=== PATIENT | male | born 1930 | race Caucasian/White ===

== ENCOUNTER 2018-05-08 18:49 | Emergency (ER) | payer OTHER ==
[~2018-05-08] VITALS: Ht 188 cm; Wt 65.6 kg
--- NOTE | 2018-05-08 18:49 | NUR ---
PT BIBA BLS TO BED 7
[2018-05-08 18:50] VITALS: BP 145/54
--- NOTE | 2018-05-08 18:58 | NUR ---
PATIENT PEPITO FROM [facility]. PER EMT PT HAD A WITNESS FALL TODAY; ABRASION NOTED ON RIGHT SIDE OF THE EYE.NO KO/LOC; DENIES NAUSEA,VOMITING OR DIZZINESS. HX OF DEMENTIA; AAOX2; PATIENT STATES PAIN OF 6/10 AT THIS TIME;PATIENT POSITIONED FOR COMFORT; HOB ELEVATED; BEDRAILS UP X2; BED DOWN. ER MD MADE AWARE OF PT STATUS.
--- NOTE | 2018-05-08 19:08 | NUR ---
REPORT GIVEN TO ABDIRAHMAN CELESTIN.
--- NOTE | 2018-05-08 19:08 | NUR ---
ASSUMED CARE OF PT FROM ABDIRAHMAN THIBODEAUX
[2018-05-08] MEDS ORDERED: ASPIRIN 325 MG TAB PO ONE (20:15)
[2018-05-08] MEDS ORDERED: DEXAMETHASONE 10 MG/ML VIAL IVP ONE (20:15)
[2018-05-08 20:46] LABS: BASOPHILS % (AUTO) 0.8 % (0.0-2.0); EOSINOPHILS # (AUTO) 0.1 K/uL (0-0.4); EOSINOPHILS % (AUTO) 1.9 % (0.0-4.0); HEMATOCRIT 37.4 % (36-52); HEMOGLOBIN 12.6 g/dL (12.0-18.0); LYMPHOCYTES # (AUTO) 0.7 K/uL (2.0-11.5); LYMPHOCYTES % (AUTO) 18.7 % (20.5-51.1); MEAN CORPUSCULAR HEMOGLOBIN 33 pg (27-31); MEAN CORPUSCULAR HGB CONC 34 g/dL (33-37); MONOCYTES # (AUTO) 0.5 K/uL (0.8-1.0); NEUTROPHILS # (AUTO) 2.6 K/uL (1.8-7.7); NEUTROPHILS % (AUTO) 66.6 % (42.2-75.2); PLATELET COUNT (AUTO) 110 K/uL (140-450); RED BLOOD CELL COUNT(AUTO) 3.82 MIL/uL (4.20-6.10); RED CELL DISTRIBUTION WIDTH 14.1 % (11.6-13.7); WHITE BLOOD COUNT (AUTO) 3.9 K/uL (4.8-10.8)
[2018-05-08 20:52] LABS: ANION GAP 7.9 (8-16); CARBON DIOXIDE 28.9 mmol/L (21-32); CHLORIDE 104 mmol/L (98-107); CREATININE 1.5 mg/dL (0.7-1.3); GLUCOSE 102 mg/dL (74-106); POTASSIUM 4.8 mmol/L (3.5-5.1); SODIUM SERUM 136 mmol/L (136-145); UREA NITROGEN, BLOOD 28 mg/dL (7-18)
[2018-05-08 20:58] LABS: ALBUMIN 2.8 g/dL (3.4-5.0); ASPARTATE AMINOTRANSFERASE 31 U/L (15-37); TOTAL BILIRUBIN 0.4 mg/dL (0.0-1.0)
[2018-05-08 21:07] LABS: PROTHROMBIN TIME 9.8 secs (10.8-13.4)
--- NOTE | 2018-05-08 21:19 | NUR ---
PT RESTING, VSS. WILL CONTINUE TO MONITOR.
--- NOTE | 2018-05-08 22:02 | NUR ---
Patient to be transferred to [facility]. Is being transferred due to HIGHER LEVEL OF CARE. Receiving facility has accepting physician and available space. ER physician has signed transfer form. Patient or responsible constitution party has agreed to transfer and signed form. Patient belongings inventoried and will be sent with patient. Copy of nursing notes, lab reports, EKG, Physicians Orders and X-rays to be sent with patient. Report called to BRUNA at receiving facility. [facility] ambulance service has been called for transfer. ETA is 60MIN.
--- NOTE | 2018-05-08 22:30 | NUR ---
[facility] ARRIVAL FOR PT TRANSFER.
[2018-05-08 22:40] VITALS: BP 145/60
== END 2018-05-08 22:40 | disposition short-term general hospital (02) ==
LOC: MED 18:49
DX: S00.81XA Abrasion of other part of head, initial encounter (principal); I10 Essential (primary) hypertension; F41.9 Anxiety disorder, unspecified; G93.9 Disorder of brain, unspecified; Z95.0 Presence of cardiac pacemaker; W07.XXXA Fall from chair, initial encounter; Y93.89 Activity, other specified; Y92.89 Other specified places as the place of occurrence of the external cause; Y99.8 Other external cause status
CPT/HCPCS: 36415; 70450; 70486; 71045; 80053; 85025; 85610; 85730; 96374; 99285; J1100; Q0092; 99284

== ENCOUNTER 2018-05-18 10:57 | Emergency (ER) | payer OTHER ==
[~2018-05-18] VITALS: Ht 182.9 cm; Wt 77.1 kg
[2018-05-18 10:59] VITALS: BP 124/66
--- NOTE | 2018-05-18 11:20 | NUR ---
PT TAKEN TO BED 1 BY EMS CREW
--- NOTE | 2018-05-18 11:56 | NUR ---
88/M brought in by ems from [facility]. unwitnessed fall in pt's room c/o occipital painX YESTERDAY. ---no hematoma no break in skin noted ---recurring falls clear speech, no facial asymmetry, moving all extremities equally hx---dementia, pacemaker, anxiety
[2018-05-18] MEDS ORDERED: HALOPERIDOL IM 5 MG/ML VIAL IM ONE (12:25)
[2018-05-18 13:06] LABS: BASOPHILS # (AUTO) 0.1 K/uL (0.00-0.22); BASOPHILS % (AUTO) 0.9 % (0.0-2.0); EOSINOPHILS # (AUTO) 0.1 K/uL (0-0.4); EOSINOPHILS % (AUTO) 1.7 % (0.0-4.0); HEMATOCRIT 40.1 % (36-52); HEMOGLOBIN 13.2 g/dL (12.0-18.0); LYMPHOCYTES # (AUTO) 0.7 K/uL (2.0-11.5); LYMPHOCYTES % (AUTO) 12.1 % (20.5-51.1); MEAN CORPUSCULAR HEMOGLOBIN 33 pg (27-31); MEAN CORPUSCULAR HGB CONC 33 g/dL (33-37); MEAN CORPUSCULAR VOLUME 98.6 fL (80-94); MONOCYTES # (AUTO) 0.7 K/uL (0.8-1.0); MONOCYTES % (AUTO) 11.1 % (1.7-9.3); NEUTROPHILS # (AUTO) 4.5 K/uL (1.8-7.7); NEUTROPHILS % (AUTO) 74.2 % (42.2-75.2); PLATELET COUNT (AUTO) 150 K/uL (140-450); RED BLOOD CELL COUNT(AUTO) 4.06 MIL/uL (4.20-6.10); RED CELL DISTRIBUTION WIDTH 14.3 % (11.6-13.7); WHITE BLOOD COUNT (AUTO) 6.1 K/uL (4.8-10.8)
[2018-05-18 13:09] LABS: ANION GAP 9.4 (8-16); CARBON DIOXIDE 29.1 mmol/L (21-32); CHLORIDE 107 mmol/L (98-107); CREATININE 1.5 mg/dL (0.7-1.3); GLUCOSE 84 mg/dL (74-106); POTASSIUM 4.5 mmol/L (3.5-5.1); SODIUM SERUM 141 mmol/L (136-145); UREA NITROGEN, BLOOD 28 mg/dL (7-18)
[2018-05-18 13:15] LABS: ASPARTATE AMINOTRANSFERASE 15 U/L (15-37); TOTAL BILIRUBIN 0.4 mg/dL (0.0-1.0)
[2018-05-18 13:16] LABS: PROTHROMBIN TIME 9.8 secs (10.8-13.4)
--- NOTE | 2018-05-18 13:30 | NUR ---
PATIENT PERINEAL CARE PERFORMED, MOVED UP IN BED, PATIENT LAYING ON BED IN SUPINE POSITION WITH EYES OPEN ALERT AND ORIENTED TO PERSON AND PLACE.
[2018-05-18 14:05] LABS: APPEARANCE,URINE CLEAR (CLEAR); BILIRUBIN,URINE NEGATIVE (NEGATIVE); BLOOD, URINE NEGATIVE (NEGATIVE); COLOR,URINE YELLOW (YELLOW); LEUKOCYTE ESTERASE ,URINE NEGATIVE (NEGATIVE); NITRITE, URINE NEGATIVE (NEGATIVE); PH,URINE 6.5 (5.0-9.0); UGLUCOSE NEGATIVE (NEGATIVE)
--- NOTE | 2018-05-18 15:52 | NUR ---
CALLED RAUDEL TREVINO FOR DC. EMS WILL HAT BRIM CURLER PT AROUND 1830 PM.
--- NOTE | 2018-05-18 18:40 | NUR ---
Patient discharge back to [facility]. pupil personnel worker by EMS, discharge instructions given with all documentation. VSS. Instructed to followup with PMD
[2018-05-18 18:45] VITALS: BP 112/56
== END 2018-05-18 18:40 | disposition home or self-care (01) ==
LOC: MED 10:57
DX: F03.90 Unspecified dementia, unspecified severity, without behavioral disturbance, psychotic disturbance, mood disturbance, and anxiety (principal); N28.9 Disorder of kidney and ureter, unspecified; I10 Essential (primary) hypertension; F41.9 Anxiety disorder, unspecified; Z95.0 Presence of cardiac pacemaker; W19.XXXA Unspecified fall, initial encounter; Y93.89 Activity, other specified; Y92.89 Other specified places as the place of occurrence of the external cause; Y99.8 Other external cause status
CPT/HCPCS: 36415; 51701; 70450; 71045; 72125; 80053; 81003; 84484; 85025; 85610; 85730; 93005; 96372; 99284; J1630; Q0092

== ENCOUNTER 2018-05-21 15:53 | Emergency (ER) | payer OTHER, MEDICAID ==
[~2018-05-21] VITALS: Ht 182.9 cm; Wt 65.8 kg
[2018-05-21 15:54] VITALS: BP 161/56
--- NOTE | 2018-05-21 15:54 | NUR ---
PT BIBA BLS TO ER BED 10
--- NOTE | 2018-05-21 15:55 | NUR ---
PT BIB BLS CREW FROM [facility] DUE TO R SIDED HEAD PAIN S/P FALL EARLIER TODAY. PER BLS CREW " NO N/V/D " BRUISING NOTED TO BODY TO R SIDE OF EYE VARIOUS STAGES OF HEALING NOTED. PT AAO X 1 TO SELF. PER FACILITY " UNWITNESSED FALL FOUND HIM ON THE FLOOR TODAY LEANING HIS HEAD ON THE RIGHT SIDE DIDNT COMPLAIN OF PAIN AND THEN HE SAID HIS HEAD HURT". BRUISING NOTED TO R EYE SOCKET, R DELTOID AND BILAT ARMS. VARIOUS STAGES OF HEALING. PT. STATES " I DONT WANT TO BE HERE". 08/27 ACUTE PAIN THAT IS NO RADIATING PER PATIENT POINTED TO R SIDE OF HEAD. PERRLA 3MM BRISK. ER MD MADE AWARE. SAFETY PRECAUTIONS IMPLEMENTED. WILL CONTINUE TO MONITOR. SAFETY PRECAUTIONS IMPLEMENTED. HOB ELEVATED. MED HX: DEMENTIA, ALZHEIMERS, AKD, PACEMAKER, HTN, ANXIETY ALLERGIES : NKDA
[2018-05-21] MEDS ORDERED: HALOPERIDOL IM 5 MG/ML VIAL IM ONE (16:20)
--- NOTE | 2018-05-21 16:20 | NUR ---
PT. IS IRRITATED AT THIS TIME, YELLING " LET ME OUT OF HERE I DO NOT WANT TO BE HERE". ER MD CUENCA MADE AWARE.
--- NOTE | 2018-05-21 17:29 | NUR ---
PT. RESTING COMFORTABLY IN BED, HOB ELEVATED. VSS. RR EVEN AND UNLABORED. WILL CONTINUE TO MONITOR.
--- NOTE | 2018-05-21 17:40 | NUR ---
PT. REFUSED CT SCAN SCREAMED TO NEW CAR INSPECTOR " GET OUT OF HERE ".ER MD CUENCA MADE AWARE
--- NOTE | 2018-05-21 17:56 | NUR ---
[facility] CONTACTED FOR TRANSPORT BACK TO FACILITY ETA 2230 PER COMPANY.
--- NOTE | 2018-05-21 18:14 | NUR ---
pt. provided with juice, tolerated well. rr even and unlabored. r elbow dressing removed my patient skin tear noted, l forearm dressing removed as well skin tear noted.
--- NOTE | 2018-05-21 19:07 | NUR ---
Pt report given to ABDIRAHMAN CELESTIN . Transfer of care at this time.
--- NOTE | 2018-05-21 19:08 | NUR ---
ASSUMED CARE OF PT FROM ABDIRAHMAN ECHAVARRIA
--- NOTE | 2018-05-21 20:50 | NUR ---
PT SLEEPING AT THIS TIME. WILL CONTINUE TO MONITOR.
--- NOTE | 2018-05-21 21:53 | NUR ---
PT ATTEMPTING TO CLIMB OUT OF BED, PT IS ABLE TO BE REDIRECTED TO LAY IN BED WITHOUT COMPLICATIONS. WILL CONTINUE TO MONITOR.
--- NOTE | 2018-05-21 23:00 | NUR ---
PT BRIEF CHANGED AND CLEANED. PROVIDED HOSPITAL PANTS. PT IN BED AT THIS TIME. WILL CONTNIUE TO MONITOR.
--- NOTE | 2018-05-21 23:27 | NUR ---
PROVIDED PT WITH SANDWICH, ASSISTANCE WITH FEEDING PROVIDED.
--- NOTE | 2018-05-22 00:28 | NUR ---
Patient appears to be resting in bed. Vital Signs within normal limits. Respirations even and unlabored.
--- NOTE | 2018-05-22 01:01 | NUR ---
BRIEF CHANGED, PT REPOSITIONED FOR COMFORT. WILL CONTINUE TO MONITOR.
--- NOTE | 2018-05-22 01:38 | NUR ---
[facility] CALLED FOR UPDATED ETA TIME -- FAWAD FROM [facility] ADVISED CREW ON THE WAY WITH 15 MINUTE ETA.
[2018-05-22 01:57] VITALS: BP 140/61
--- NOTE | 2018-05-22 01:58 | NUR ---
Patient discharged with v/s stable. Written and verbal after care instructions given and explained. Patient verbalized understanding. Ambulance Transport with to skilled nursing. All questions addressed prior to discharge. Advised to follow up with PMD.
== END 2018-05-22 02:00 | disposition home or self-care (01) ==
LOC: MED 15:53
DX: S51.011A Laceration without foreign body of right elbow, initial encounter (principal); R51 Headache; F03.90 Unspecified dementia, unspecified severity, without behavioral disturbance, psychotic disturbance, mood disturbance, and anxiety; I10 Essential (primary) hypertension; Z95.0 Presence of cardiac pacemaker; W01.0XXA Fall on same level from slipping, tripping and stumbling without subsequent striking against object, initial encounter; Y93.89 Activity, other specified; Y92.128 Other place in nursing home as the place of occurrence of the external cause; Y99.8 Other external cause status
CPT/HCPCS: 96372; 99283; J1630

== ENCOUNTER 2018-05-24 04:00 | Emergency (ER) | payer OTHER, MEDICAID ==
[~2018-05-24] VITALS: Ht 177.8 cm; Wt 72.6 kg
[2018-05-24 04:00] VITALS: BP 156/61
--- NOTE | 2018-05-24 04:00 | NUR ---
[facility] EMS. Pt transfered to bed 5 from [facility].
[2018-05-24] MEDS ORDERED: LORazepam 2 MG/ML VIAL IM ONE (04:10)
--- NOTE | 2018-05-24 04:10 | NUR ---
Patient noted to have existing wounds upon arrival to ER. Photos taken of wound and placed in chart. Wound covered with dressing. Physician informed.
--- NOTE | 2018-05-24 04:10 | NUR ---
PT BIBA FOR FROM [facility] FOR FALL. DENTAL PATIENT COORDINATOR STATED THAT PT FELL 4 DAYS AGO RESULTING IN BRUISING AROUND PT R EYE, AND PT FELL 4 HOURS AGO AND STAFF FOUND HIM ON THE FLOOR. STAFF AT [facility] CALLED AMBULANCE BECAUSE OF PT CRYING OUT IN PAIN. PT HAS BRUISING ON R EYE, R HIP, L AND R ARMS, SKIN TEARS ON R ELBOW AND R HART, AND HANDS. PRESSURE ULCER ON PT SACRAL REGION. PT HAS DEMENTIA, PERRLA, FACIAL SYMMETRY INTACT, UNABLE TO ANSWER QUESTIONS, OVERESTEMATES ABILITY, UNABLE TO AMBULATE. PER DENTAL PATIENT COORDINATOR THAT IS PT'S BASELINE. ER MD TO SEE PT. SAFETY PRECAUTIONS IN PLACE, BED IN LOWEST POSITION, SIDE RAILS UP X2, HOB ELEVATED, FALL WRISTBAND PLACED ON PT, MOVED TO BED 5 TO BE IN CLEAR VIEW OF NURSES STATION, AND CURTAINS LEFT OPEN TO VISUALIZE PT. MEDHX: DEMENTIA, PSYCHOSIS, PACE MAKER, A-FIB
[2018-05-24] MEDS ORDERED: QUET25TA PO (04:14)
[2018-05-24] MEDS ORDERED: METO25TE2 PO (04:14)
[2018-05-24] MEDS ORDERED: DONE5TAB6 PO (04:15)
[2018-05-24] MEDS ORDERED: MORPHINE SULFATE 4 MG/ML SYR IM ONE (04:15)
[2018-05-24] MEDS ORDERED: MELA5TAB6 PO (04:16)
[2018-05-24] MEDS ORDERED: DIVA250T PO (04:16)
[2018-05-24] MEDS ORDERED: DOCU-299 PO (04:17)
[2018-05-24] MEDS ORDERED: AMIO200T5 PO (04:17)
[2018-05-24] MEDS ORDERED: BUS5 PO (04:18)
[2018-05-24] MEDS ORDERED: MAGN400S60 PO (04:18)
--- NOTE | 2018-05-24 04:21 | NUR ---
TO CT VIA MAR WITH PATRICK TREVINO, RN, AND EMT.
[2018-05-24 04:33] LABS: ANION GAP 8.7 (8-16); CARBON DIOXIDE 30.6 mmol/L (21-32); CHLORIDE 106 mmol/L (98-107); CREATININE 1.5 mg/dL (0.7-1.3); GLUCOSE 91 mg/dL (74-106); POTASSIUM 4.3 mmol/L (3.5-5.1); SODIUM SERUM 141 mmol/L (136-145); UREA NITROGEN, BLOOD 25 mg/dL (7-18)
[2018-05-24 04:38] LABS: ALBUMIN 2.8 g/dL (3.4-5.0); ASPARTATE AMINOTRANSFERASE 26 U/L (15-37); TOTAL BILIRUBIN 0.5 mg/dL (0.0-1.0)
--- NOTE | 2018-05-24 05:12 | NUR ---
EKG PERFORMED AT BEDSIDE. PT COVERED IN GOWN AND BLANKET DURING PROCEDURE. PT DID RESIST AND BECOME COMBATIVE IN BOUTS DURING PROCEDURE.
--- NOTE | 2018-05-24 05:15 | NUR ---
# 14 FR Urinary catheter inserted utilizing sterile technique. Immediate return of 30 ml CLEAR YELLOW urine noted. Urine sample collected and sent to lab. Pt tolerated procedure WELL.
[2018-05-24 05:25] LABS: BASOPHILS # (AUTO) 0.1 K/uL (0.00-0.22); BASOPHILS % (AUTO) 0.9 % (0.0-2.0); EOSINOPHILS # (AUTO) 0.1 K/uL (0-0.4); EOSINOPHILS % (AUTO) 1.2 % (0.0-4.0); HEMATOCRIT 39.5 % (36-52); HEMOGLOBIN 12.9 g/dL (12.0-18.0); LYMPHOCYTES # (AUTO) 0.7 K/uL (2.0-11.5); LYMPHOCYTES % (AUTO) 11.5 % (20.5-51.1); MEAN CORPUSCULAR HEMOGLOBIN 32 pg (27-31); MEAN CORPUSCULAR HGB CONC 33 g/dL (33-37); MEAN CORPUSCULAR VOLUME 97.9 fL (80-94); MONOCYTES # (AUTO) 0.8 K/uL (0.8-1.0); MONOCYTES % (AUTO) 13.1 % (1.7-9.3); NEUTROPHILS # (AUTO) 4.6 K/uL (1.8-7.7); NEUTROPHILS % (AUTO) 73.3 % (42.2-75.2); PLATELET COUNT (AUTO) 119 K/uL (140-450); RED BLOOD CELL COUNT(AUTO) 4.03 MIL/uL (4.20-6.10); RED CELL DISTRIBUTION WIDTH 14.3 % (11.6-13.7); WHITE BLOOD COUNT (AUTO) 6.3 K/uL (4.8-10.8)
[2018-05-24 05:59] LABS: APPEARANCE,URINE SL CLOUDY (CLEAR); BILIRUBIN,URINE NEGATIVE (NEGATIVE); BLOOD, URINE 3+ (NEGATIVE); COLOR,URINE YELLOW (YELLOW); LEUKOCYTE ESTERASE ,URINE 3+ (NEGATIVE); NITRITE, URINE POSITIVE (NEGATIVE); UGLUCOSE NEGATIVE (NEGATIVE)
[2018-05-24 06:10] LABS: WBC,URINE 20-60 /HPF (0-5)
[2018-05-24 06:11] LABS: RBC,URINE 11-20 (MOD) /HPF (0-5)
--- NOTE | 2018-05-24 06:14 | NUR ---
PT IS RESTING IN BED WITH EYES CLOSED. NO AGITATION OR RESLTESSNESS NOTED AT THIS TIME. VSS. WILL CONTINUE TO MONITOR.
[2018-05-24] MEDS ORDERED: cefTRIAXone 1,000 MG in LIDOCAINE MPF 1% - 5 mL VIAL 2.1 ML IM ONE (06:25)
--- NOTE | 2018-05-24 06:36 | NUR ---
SPOKE WITH JUAQUIN FROM [facility]. ADVISED THAT TRANSPORT WILL BE IN CONTACT WITH ED AT 0700 TO PROVIDE ETA FOR PICKUP. ER MD CHONG AWARE AND AGREES.
--- NOTE | 2018-05-24 07:06 | NUR ---
JUAQUIN FROM [facility] CALLED TO UPDATE ETA, TRANSPORTATION WILL ARRIVE BETWEEN [phone] AND [phone]
[2018-05-24 07:50] VITALS: BP 148/60
--- NOTE | 2018-05-24 08:00 | NUR ---
Patient discharged with v/s stable. Written and verbal after care instructions given and explained. Patient alert, oriented and verbalized understanding of instructions. Wheel Chair Assisted with by caregiver. All questions addressed prior to discharge. ID band removed. Patient advised to follow up with PMD. Rx of cipro given. Patient educated on indication of medication including possible reaction and side effects. Opportunity to ask questions provided and answered.
== END 2018-05-24 08:00 | disposition home or self-care (01) ==
LOC: MED 04:00
DX: S00.11XA Contusion of right eyelid and periocular area, initial encounter (principal); S70.01XA Contusion of right hip, initial encounter; S50.01XA Contusion of right elbow, initial encounter; N17.9 Acute kidney failure, unspecified; N39.0 Urinary tract infection, site not specified; F03.90 Unspecified dementia, unspecified severity, without behavioral disturbance, psychotic disturbance, mood disturbance, and anxiety; I10 Essential (primary) hypertension; Z79.899 Other long term (current) drug therapy; W19.XXXA Unspecified fall, initial encounter; Y93.89 Activity, other specified; Y92.89 Other specified places as the place of occurrence of the external cause; Y99.8 Other external cause status
CPT/HCPCS: 36415; 70450; 70486; 73080; 73502; 80053; 81001; 85025; 87086; 93005; 96372; 99284; C1758; J0696; J2001; J2060; J2270; 87186

== ENCOUNTER 2018-06-19 19:59 | Inpatient (IN) | payer OTHER, MEDICAID ==
[~2018-06-19] VITALS: Ht 170.2 cm; Wt 71.2 kg
[~2018-06-19 19:59] MED LIST: AMIO200T5 PO; BUS5 PO; DIVA250T PO; DOCU-299 PO; DONE5TAB6 PO; MAGN400S60 PO; MELA5TAB6 PO; METO25TE2 PO; QUET25TA PO
[2018-06-19 20:00] VITALS: BP 185/74
[2018-06-19] MEDS ORDERED: NACL 0.9% 500 ML IV SCH (20:09)
[2018-06-19 20:17] VITALS: BP 185/74
--- NOTE | 2018-06-19 20:17 | NUR ---
RT AT BEDSIDE, PT PUT ON BIPAP.
[2018-06-19 20:46] LABS: EOSINOPHILS # (AUTO) 0.4 K/uL (0-0.4); EOSINOPHILS % (AUTO) 5.1 % (0.0-4.0); HEMATOCRIT 49.9 % (36-52); HEMOGLOBIN 16.3 g/dL (12.0-18.0); LYMPHOCYTES # (AUTO) 1.3 K/uL (2.0-11.5); LYMPHOCYTES % (AUTO) 16.8 % (20.5-51.1); MEAN CORPUSCULAR HEMOGLOBIN 32 pg (27-31); MEAN CORPUSCULAR HGB CONC 33 g/dL (33-37); MEAN CORPUSCULAR VOLUME 99.4 fL (80-94); MONOCYTES # (AUTO) 1.5 K/uL (0.8-1.0); MONOCYTES % (AUTO) 19.6 % (1.7-9.3); NEUTROPHILS # (AUTO) 4.4 K/uL (1.8-7.7); NEUTROPHILS % (AUTO) 58.5 % (42.2-75.2); PLATELET COUNT (AUTO) 144 K/uL (140-450); RED BLOOD CELL COUNT(AUTO) 5.03 MIL/uL (4.20-6.10); RED CELL DISTRIBUTION WIDTH 14.9 % (11.6-13.7); WHITE BLOOD COUNT (AUTO) 7.5 K/uL (4.8-10.8)
--- NOTE | 2018-06-19 20:54 | NUR ---
XRAY AT BEDSIDE
--- NOTE | 2018-06-19 21:00 | NUR ---
# 16 FR Patterson catheter with 10ml utilizing sterile technique. Immediate return of 50 ml CLOUDY YELLOW urine noted. Bedside drainage bag placed below level of bladder. Urine sample collected and sent to lab. Pt tolerated procedure WELL.
[2018-06-19 21:04] LABS: ALBUMIN 3.6 g/dL (3.4-5.0); CHLORIDE 103 mmol/L (98-107); POTASSIUM 4.6 mmol/L (3.5-5.1); SODIUM SERUM 143 mmol/L (136-145)
[2018-06-19] MEDS ORDERED: PIPERACILLIN/TAZOBACTAM 3.375 GM in DEXTROSE 5% 50 ML IV ONE (21:05)
[2018-06-19 21:11] LABS: APPEARANCE,URINE TURBID (CLEAR); BILIRUBIN,URINE 1+ (NEGATIVE); BLOOD, URINE 3+ (NEGATIVE); COLOR,URINE YELLOW (YELLOW); LEUKOCYTE ESTERASE ,URINE 3+ (NEGATIVE); NITRITE, URINE NEGATIVE (NEGATIVE); UGLUCOSE NEGATIVE (NEGATIVE)
[2018-06-19 21:12] LABS: PROTHROMBIN TIME 9.9 secs (10.8-13.4)
[2018-06-19 21:14] LABS: RBC,URINE 20-50 /HPF (0-5); WBC,URINE TOO MANY TO COUNT /HPF (0-5)
[2018-06-19 21:21] LABS: ANION GAP 14.9 (8-16); ASPARTATE AMINOTRANSFERASE 19 U/L (15-37); CARBON DIOXIDE 29.7 mmol/L (21-32); CREATININE 2.4 mg/dL (0.7-1.3); GLUCOSE 214 mg/dL (74-106); TOTAL BILIRUBIN 0.6 mg/dL (0.0-1.0); UREA NITROGEN, BLOOD 42 mg/dL (7-18)
[2018-06-19] MEDS ORDERED: PIPERACILLIN/TAZOBACTAM 3.375 GM VIAL IV ONE (21:22)
[2018-06-19] MEDS ORDERED: LEVOFLOXACIN 500 MG/D5W PREMIX 100 ML IV ONE (21:25)
[2018-06-19] MEDS ORDERED: NACL 0.9% 2,500 ML IV ONE (21:25)
--- NOTE | 2018-06-19 22:00 | NUR ---
Patient noted to have existing wounds upon arrival to ER. Photos taken of wound and placed in chart. Wound covered with dressing. Physician informed.
[2018-06-19] MEDS ORDERED: MORPHINE SULFATE 2 MG/ML SYR IVP PRN (22:25)
[2018-06-19] MEDS ORDERED: HYDROcodone/APAP 5/325 MG 1 TAB TAB PO PRN (22:25)
[2018-06-19] MEDS ORDERED: ONDANSETRON 4 MG/2 ML VIAL IM/IVP PRN (22:25)
[2018-06-19] MEDS ORDERED: DOCUSATE SODIUM 100 MG GELCAP PO PRN (22:25)
[2018-06-19] MEDS ORDERED: ACETAMINOPHEN 325 MG TAB PO PRN (22:25)
[2018-06-19] MEDS ORDERED: ATOR20TA PO (22:50)
[2018-06-19] MEDS ORDERED: KEP500 PO (22:50)
[2018-06-19] MEDS ORDERED: DONE10TA10 PO (22:50)
[2018-06-19] MEDS ORDERED: ACETAMINOPHEN PO (22:50)
[2018-06-19] MEDS ORDERED: ASPI-1718 PO (22:50)
[2018-06-19 23:00] LABS: MAGNESIUM 2.6 mg/dL (1.8-2.4); PHOSPHORUS 5.6 mg/dL (2.5-4.9); THYROID STIMULATING HORMONE 1.31 uIU/mL (0.34-3.74)
[2018-06-19] MEDS ORDERED: NACL 0.9% 1,000 ML IV SCH (23:00)
--- NOTE | 2018-06-19 23:10 | NUR ---
Patient will be admitted to care of [facility]. Admited to ICU 5 VIA GURNEY WITH VSS Belongings list completed. CALLED ICU FOR REPORT PER HOUSE SUP
--- NOTE | 2018-06-19 23:30 | NUR ---
PATIENT TRANSFERRED FROM ER VIA GURNEY WITH 2 ASSISTANCE. PATIENT AWAKE, NON VERBAL, UNABLE TO MAKE NEEDS KNOWN. NO FEVER. PATIENT HAS PACEMAKER, SR ON THE MONITOR. SOB WITH HYPOXIA, ON BIPAP WITH IPAP 12, EPAP 5, RATE 14, FIO2 40%. PERIPHERAL LINE TO LEFT AC 20G, RUNNING NS 176ML/HR AND LEVAQUIN. KIM IN PLACE, DRAINING MILK COLOR LIKE URINE NOTED. PATIENT DX WITH UROSEPSIS. HX OF PARKINSON DISEASE WITH TREMORS NOTED. HOB ELEVATED, BED IN LOW POSITION. CALL LIGHT WITH IN REACH. WILL CONTINUE TO MONITOR.
[2018-06-19 23:35] VITALS: BP 131/99
--- NOTE | 2018-06-19 23:35 | NUR ---
PT TRANSFER TO ICU 5 FROM ER VIA SIMPLE MASK 6 L. PLACED PT ON BIPAP/.PT VITALS STABLE
[2018-06-20] VITALS (9 sets, daily range): BP systolic 95–153; BP diastolic 33–88
--- NOTE | 2018-06-20 | NUR ---
DR. ROYAL AT BEDSIDE TO EVAL THE PATIENT. WILL FOLLOW ORDERS.
[2018-06-20] MEDS ORDERED: ACETAMINOPHEN EXTRA STRENGTH 500 MG TAB PO PRN (00:45)
[2018-06-20] MEDS: DEXT 5% / NACL 0.45% 1,000 ML IV SCH ×2 (01:03→11:00)
[2018-06-20] MEDS ORDERED: LORazepam 2 MG/ML VIAL IM/IVP PRN (01:10)
[2018-06-20] MEDS ORDERED: ALBUTEROL SULFATE/IPRATROPIU 3 ML SOL IH PRN (01:15)
--- NOTE | 2018-06-20 02:00 | NUR ---
PATIENT IN ASLEEP AT THIS TIME. AROUSABLE TO VOICE. FLACC 0. TOLERATED WELL WITH BIPAP. O2 SAT 100% NOTED. SR ON THE MONITOR. WILL CONTINUE TO MONITOR.
[2018-06-20] MEDS ORDERED: PIPERACILLIN/TAZOBACTAM 2.25 GM VIAL IV ONE (05:22)
[2018-06-20] MEDS: PIPER/TAZO 2.25GM/D5W PREMIX 50 ML IV SCH ×4 (05:24→23:56)
--- NOTE | 2018-06-20 06:12 | NUR ---
rec'd pt on maggie v60 bipap setting 12/5 rr14 fio2 40% and alarms on and audible and ambu bag at side of bipap and bipap is plugged into red outlet, b\s are clear bilaterally pt agitated.
--- NOTE | 2018-06-20 06:34 | NUR ---
PATIENT HAS BEEN SCREENED AND CATEGORIZED HIGH NUTRITION RISK. PATIENT WILL BE SEEN WITHIN 1-2 DAYS OF ADMISSION. 06/20/18-06/21/18 ALEJO MATTA MS, RDN
[2018-06-20 06:55] LABS: HEMATOCRIT 43.9 % (36-52); HEMOGLOBIN 14.3 g/dL (12.0-18.0); MEAN CORPUSCULAR HEMOGLOBIN 32 pg (27-31); MEAN CORPUSCULAR HGB CONC 33 g/dL (33-37); MEAN CORPUSCULAR VOLUME 98.7 fL (80-94); PLATELET COUNT (AUTO) 109 K/uL (140-450); RED BLOOD CELL COUNT(AUTO) 4.44 MIL/uL (4.20-6.10); RED CELL DISTRIBUTION WIDTH 14.6 % (11.6-13.7); WHITE BLOOD COUNT (AUTO) 9.9 K/uL (4.8-10.8)
[2018-06-20] MEDS ORDERED: POLYVINYL ALCOHOL 1.4% OP 15 ML SOL OP PRN (06:55)
[2018-06-20 07:18] LABS: ANION GAP 12.4 (8-16); CARBON DIOXIDE 30.7 mmol/L (21-32); CHLORIDE 109 mmol/L (98-107); CREATININE 2.1 mg/dL (0.7-1.3); GLUCOSE 156 mg/dL (74-106); POTASSIUM 4.1 mmol/L (3.5-5.1); SODIUM SERUM 148 mmol/L (136-145); UREA NITROGEN, BLOOD 43 mg/dL (7-18)
[2018-06-20 07:37] LABS: MAGNESIUM 2.3 mg/dL (1.8-2.4); PHOSPHORUS 3.6 mg/dL (2.5-4.9)
[2018-06-20] MEDS: BLOOD GLUCOSE MONITORING 1 DEV DEV FS SCH ×4 (07:50→20:19)
[2018-06-20 07:57] LABS: BASOPHILS % (MANUAL) 0 % (0-2); EOSINOPHILS % (MANUAL) 0 % (0-4); LYMPHOCYTES % (MANUAL) 3 % (20-46); MONOCYTES % (MANUAL) 7 % (5-12)
[2018-06-20] MEDS ORDERED: CALCIUM ACETATE 667 MG TAB PO SCH (08:00)
--- NOTE | 2018-06-20 08:20 | NUR ---
PT RECEIVED FROM ICU NURSE. PT WAS TRANSFERRED TO BED VIA 4 NURSE TOTAL ASSIST. PT WAS PLACED ON BIPAP, DENTAL HYGIENE INSTRUCTOR, CONTINOUS PULSE OX. KIM DRAINING TO GRAVITY. URINE CLOUDY, CREAMY BROWN COLORED. IV LEFT AC 20G SITE WNL. INITIAL ASSESSMENT DONE. VITALS TAKEN. DR. CABAN WAS PRESENT WHILE TRANSFER. SCD PLACED. FALL AND CONTACT ISO IN PLACE. POC REVIEWED. ALL SAFETY MEASURES IN PLACE. WILL CONTINUE TO MONITOR.
[2018-06-20] MEDS: levETIRAcetam 500 MG TAB PO SCH ×2 (09:00→20:24)
[2018-06-20] MEDS: DIVALPROEX 500 MG TABEC PO SCH ×2 (09:00→20:23)
[2018-06-20] MEDS: AMIODARONE 200 MG TAB PO SCH ×2 (09:00→20:24)
[2018-06-20] MEDS: busPIRone 5 MG TAB PO SCH ×2 (09:00→20:22)
[2018-06-20] MEDS: DOCUSATE SODIUM 100 MG GELCAP PO SCH ×2 (09:00→20:24)
[2018-06-20] MEDS ORDERED: POLYVINYL ALCOHOL 1.4% OP 15 ML SOL BOTH EYES PRN (09:00)
[2018-06-20] MEDS: ASPIRIN 81 MG TAB.CHEW PO SCH (09:00)
--- NOTE | 2018-06-20 09:33 | NUR ---
ATTEMPTED BEDSIDE SWALLOW SCREENING. PT UNABLE TO TOLERATE LESS THAN 5ML WATER. COUGHING. ALL PO MEDS HELD. WILL NOTIFY .
--- NOTE | 2018-06-20 11:30 | NUR ---
CHANGED BIPAP EPAP TO 6 AND KEEP O2 SAT ABOVE 90% PER DR. REDD
[2018-06-20] MEDS ORDERED: MORPHINE SULFATE 2 MG/ML SYR IVP PRN (12:10)
[2018-06-20] MEDS: ALBUTEROL SULFATE/IPRATROPIU 3 ML SOL IH SCH (13:00)
--- NOTE | 2018-06-20 13:05 | NUR ---
PT'S SON AT BEDSIDE.
[2018-06-20] MEDS: LORazepam 2 MG/ML VIAL IM/IVP PRN (14:14)
--- NOTE | 2018-06-20 14:16 | NUR ---
PT TRYING TO TAKE OFF BIPAP MASK, TRYING TO PULL KIM CATH, TRYING TO GET OUT OF MITTENS, TRIES TO HIT STAFF WITH CARE, PT APPEARS AGITATED AND ANXIOUS, ATIVAN GIVEN PER PRN ORDER, PT REMAINS ON CONT. PULSE OX O2 SAT 100%, WITH BIPAP FIO2 50%. WILL CONTINUE TO MONTIOR.
[2018-06-20] MEDS ORDERED: Z-GUARD PASTE TP PRN (14:25)
--- NOTE | 2018-06-20 15:05 | NUR ---
FAB SCHUMACHER AT BEDSIDE, DR ROME SPOKE TO SON REGARDING OPTIONS, POLST FORM SIGNED BY SON.
--- NOTE | 2018-06-20 16:05 | NUR ---
NG TUBE INSERTED TO RIGHT NARE 14G, AFTER 2 ATTEMPTS, SUCCESSFUL, XRAY TAKEN FOR PLACEMENT CONFIRMATION.
--- NOTE | 2018-06-20 17:30 | NUR ---
NOTIFIED DR. BRADSHAW OF DECREASED BLOOD SUGAR. GLUCOSE LEVEL OF 74. WILL GIVE 1 AMP OF D50 PER DR. BRADSHAW
[2018-06-20] MEDS ORDERED: DEXTROSE 50% 50 ML SYR IVP ONE (17:45)
[2018-06-20] MEDS ORDERED: DEXTROSE 50% 50 ML SYR IVP SCH (18:00)
--- NOTE | 2018-06-20 19:31 | NUR ---
CHECKED BLOOD SUGAR. 97. GAVE REPORT TO MANAGER BRIDGE NURSE. PT RESTED COMFORTABLY ON BIPAP 50% FIO2. SPO2 100%.
--- NOTE | 2018-06-20 19:32 | NUR ---
RECEIVED REPORT FROM ABDIRAHMAN MOE FOR CONTINUITY OF CARE. PT NONVERBAL, ON BIPAP AT 50% 02. PT UNABLE TO MAKE NEEDS KNOWN, UNABLE TO FOLLOW COMMANDS. PT FALL RISK, BED ALARM ON. REDNESS TO SACRUM, BUT SKIN IS INTACT. PT HAS A 22G IV TO LEFT FOREARM, ASYMPTOMATIC AND INTACT. VITAL SIGNS WITHIN NORMAL LIMITS. PT STABLE, FLACC 0, NO SIGNS OF DISTRESS NOTED AT THIS TIME. PT POSITIONED FOR COMFORT. BED IN LOWEST POSITION, BED ALARM ON. WILL CONTINUE TO MONITOR.
[2018-06-20] MEDS: DONEPEZIL 10 MG TAB PO SCH (20:22)
[2018-06-20] MEDS: QUEtiapine FUMARATE 25 MG TAB PO SCH (20:23)
--- NOTE | 2018-06-20 20:27 | NUR ---
CRUSHED AND ADMINISTERED SCHEDULED MEDICATIONS THROUGH NGT. FLUSHED WITH WATER AFTER EACH MEDICATION AND ADMINISTERED HEPARIN SQ IN ABDOMEN. PT TOLERATED WELL.
--- NOTE | 2018-06-20 22:12 | NUR ---
MOVED PT FROM ROOM 125-A TO ROOM 122-A. PT STABLE, NO SIGNS OF DISTRESS NOTED AT THIS TIME. PT POSITIONED FOR COMFORT. BED IN LOWEST POSITION, BED ALARM ON. WILL CONTINUE TO MONITOR.
[2018-06-21] VITALS (7 sets, daily range): BP systolic 113–177; BP diastolic 50–80
--- NOTE | 2018-06-21 | NUR ---
VITAL SIGNS WITHIN NORMAL LIMITS. PT STABLE, DENIES PAIN AT THIS TIME, NO SIGNS OF DISTRESS NOTED AT THIS TIME. PT POSITIONED FOR COMFORT. BED IN LOWEST POSITION, BED ALARM ON. WILL CONTINUE TO MONITOR.
[2018-06-21] MEDS: Z-GUARD PASTE TP SCH ×2 (00:10→13:15)
--- NOTE | 2018-06-21 02:34 | NUR ---
NO SIGNS OF DISTRESS NOTED AT THIS TIME. PT POSITIONED FOR COMFORT. BED IN LOWEST POSITION, BED ALARM ON. WILL CONTINUE TO MONITOR.
[2018-06-21] MEDS: PIPER/TAZO 2.25GM/D5W PREMIX 50 ML IV SCH ×3 (05:12→18:51)
[2018-06-21] MEDS: LORazepam 2 MG/ML VIAL IM/IVP PRN (05:14)
--- NOTE | 2018-06-21 05:15 | NUR ---
ADMINISTERED ATIVAN BECAUSE PT WAS AGITATED AND TRYING TO PULL ON TUBES. PT TOLERATED WELL. WILL CONTINUE TO MONITOR.
[2018-06-21] MEDS: DEXT 5% / NACL 0.45% 1,000 ML IV SCH ×2 (05:54→10:47)
[2018-06-21] MEDS: BLOOD GLUCOSE MONITORING 1 DEV DEV FS SCH ×4 (05:54→21:33)
--- NOTE | 2018-06-21 06:20 | NUR ---
REC'D PT ON DOMINGUEZ V60 BIPAP SETTINGS / RR 14 FIO2 50% ALARMS ON AND AUDIBLE AND AMBU BAG AT SIDE OF BIPAP AND BIPAP IS PLUGGED INTO RED OUTLET, B\S ARE DIMINISHED BILATERALLY PT WEARING MED FACE MASK AND SKIN INTEGRITY IS INTACT PT SLEEPING WITH NO SIGNS OF DISTRESS NOTED AT THIS TIME Addendum: 06/21/18 at 0815 by Eileen Valdez RT pt on 40%fio2
[2018-06-21 06:29] LABS: BASOPHILS % (AUTO) 0.6 % (0.0-2.0); CARBON DIOXIDE 28.5 mmol/L (21-32); CHLORIDE 111 mmol/L (98-107); CREATININE 1.5 mg/dL (0.7-1.3); EOSINOPHILS # (AUTO) 0.1 K/uL (0-0.4); GLUCOSE 107 mg/dL (74-106); HEMATOCRIT 32.5 % (36-52); HEMOGLOBIN 10.8 g/dL (12.0-18.0); LYMPHOCYTES # (AUTO) 0.8 K/uL (2.0-11.5); LYMPHOCYTES % (AUTO) 17.8 % (20.5-51.1); MEAN CORPUSCULAR HEMOGLOBIN 32 pg (27-31); MEAN CORPUSCULAR HGB CONC 33 g/dL (33-37); MEAN CORPUSCULAR VOLUME 96.9 fL (80-94); MONOCYTES # (AUTO) 0.3 K/uL (0.8-1.0); NEUTROPHILS # (AUTO) 3.1 K/uL (1.8-7.7); NEUTROPHILS % (AUTO) 72.6 % (42.2-75.2); PLATELET COUNT (AUTO) 108 K/uL (140-450); POTASSIUM 3.5 mmol/L (3.5-5.1); RED BLOOD CELL COUNT(AUTO) 3.36 MIL/uL (4.20-6.10); RED CELL DISTRIBUTION WIDTH 14.3 % (11.6-13.7); SODIUM SERUM 147 mmol/L (136-145); UREA NITROGEN, BLOOD 33 mg/dL (7-18); WHITE BLOOD COUNT (AUTO) 4.3 K/uL (4.8-10.8)
[2018-06-21 06:42] LABS: MAGNESIUM 2.1 mg/dL (1.8-2.4); PHOSPHORUS 2.6 mg/dL (2.5-4.9)
[2018-06-21] MEDS: ALBUTEROL SULFATE/IPRATROPIU 3 ML SOL IH SCH ×3 (07:00→19:00)
--- NOTE | 2018-06-21 07:30 | NUR ---
RECEIVED PT ON BIPAP WITH 50% FIO2. PT CONFUSED, TRYING TO PULL OUT BIPAP, IV AND NGT. WITH MITTENS ON BILATERAL HANDS. AND NO SOB NOTED, NO SIGNS OF PAIN AT THIS TIME. IV TO LT AC PATENT AND INTACT. CHEST, DIMINISHED AIR ENTRY TO THE BASES. ABDOMEN SOFT, BOWEL SOUNDS PRESENT WITH WITH NG TO RT NARES, PROPER PLACEMENT CHECKED AND AUSCULTATED, NO RESIDUAL NOTED. WITH KIM DRAINING DARK LAVERN URINE IN MODERATE AMOUNTS. WILL REPOSITION PT Q2 HRS. CALL LIGHT WITHIN REACH, BED ALARM ON, BED ON LOWEST POSITION WITH 3 SIDE RAILS RAISED UP. WILL CONTINUE TO MONITOR PT.
--- NOTE | 2018-06-21 07:38 | NUR ---
ENDORSED PT TO DAY SHIFT RN LUIS ARMANDO FOR CONTINUITY OF CARE. PT IN STABLE CONDITION.
--- NOTE | 2018-06-21 10:02 | NUR ---
INCREASED FIO2 TO 50% FOR LOW O2 SAT OF 86% RN LUIS ARMANDO NOTIFIED
[2018-06-21] MEDS: DIVALPROEX 500 MG TABEC PO SCH ×2 (10:45→21:36)
[2018-06-21] MEDS: DOCUSATE SODIUM 100 MG GELCAP PO SCH ×2 (10:45→21:37)
[2018-06-21] MEDS: ASPIRIN 81 MG TAB.CHEW PO SCH (10:45)
[2018-06-21] MEDS: AMIODARONE 200 MG TAB PO SCH ×2 (10:46→21:37)
[2018-06-21] MEDS: levETIRAcetam 500 MG TAB PO SCH ×2 (10:46→21:36)
[2018-06-21] MEDS: busPIRone 5 MG TAB PO SCH ×2 (10:46→21:37)
--- NOTE | 2018-06-21 16:17 | NUR ---
06/21/18 RD INITIAL ASSESSMENT COMPLETED PLEASE REFER TO NUTRITION ASSESSMENT UNDER CARE ACTIVITY FOR ESTIMATED NUTRITIONAL NEEDS. 1. RECOMMEND VITAL 1.2 AT 75 ML/HR AND 180 ML WATER FLUSH Q6H DUE TO SEPSIS AND WOUND HEALING -THIS WILL PROVIDE A VOLUME OF 1800 ML, 2160 KCAL ENERGY, 135 GRAMS OF PROTEIN, AND 2180 ML FLUID. IT MEETS 100% OF ENERGY AND PROTEIN NEEDS. 2. RD TO FOLLOW-UP 2-3 DAYS, HIGH RISK JAMES LUCIO RD
--- NOTE | 2018-06-21 17:44 | NUR ---
BIPAP MASK REMOVED BRIEFLY FOR SWALLOW EVALUATION PER DR LOZANO PT FAILED RETURNED IMMEDIATELY TO BIPAP
--- NOTE | 2018-06-21 18:00 | NUR ---
NGT TUBE FEEDING CHANGED TO VITAL AF ORDERED.
--- NOTE | 2018-06-21 18:34 | NUR ---
* ST NOTE * Pt seen at bedside w/Nsg Rosalinda, Dr. Radford & RT present. Pt alert but lethargic at this time, requiring maximal verbal, tactile & visual cues to remain engaged throughout session. Bedside dysphagia and oral mechanism exams completed. See evaluation report for further details. RT removing BiPap at this time, and clinician administering 1 1-3 CC bolus of honey-thickened apple juice via a spoon. Pt accepting 1 CC via spoon, but appearing to hold bolus in oral cavity, demonstrating moderately impaired AP bolus transit at this time. Pt's 02 saturation also decreasing down to the 40s-50s at this time w/BiPap off & mask on. Clinician thus clearing pt's oral cavity of administered bolus to ensure safety and decreased risk of choking or aspiration, and RT re-applying BiPap at this time 2/2 to pt's severely diminished 02 saturation. Once BiPap mask replaced securely, pt's 02 saturation rates increasing gradually to 60s at this time. Pt, Dr. Radford and RT education completed re: pt unable to safely tolerate PO intake at this time 2/2 to severely diminished respiratory status, w/pt indifferent but Dr. Radford & RT agreeable. It is thus recommended pt remain NPO and to continue artificial means of nutrition via NGT or other enteral feeding method as specified by pt's POLST, family preferences, etc. Lastly it is recommended caregivers/nsg complete frequent oral hygiene program in AM & PM respectively. No further ST follow up recommended at this time. Pt, MD, & RT education completed re: results of evaluation; benefits of abiding by recommendation for pt to remain NPO w/alternative means of nutrition via NGT or other enteral feeding; and prognosis for improvement; with pt indifferent but caregivers/MD & RT verbalizing understanding and agreement w/clinician's recommendations. Recommend: - CONTINUE NPO - CONTINUE ARTIFICIAL MEANS OF NUTRITION VIA NGT OR CONSIDER PEG TUBE PLACEMENT barring pt's family's wishes/POLST - Complete oral hygiene care frequently, at least 2x/day in AM & PM No further ST follow up recommended at this time. NOMS Level 6 Time In/Out 17:45 - 18:15
--- NOTE | 2018-06-21 19:15 | NUR ---
PT RESTING. NO SOB NOTED. NO SIGNS OF PAIN. WILL ENDORSE TO NEXT SHIFT NURSE FOR CONTINUITY OF CARE.
--- NOTE | 2018-06-21 19:16 | NUR ---
RECEIVED BEDSIDE REPORT FROM DAY SHIFT NURSE LUIS ARMANDO RN, PT STABLE, NO DISTRESS NOTED, IV TO R FOOT 22G PATENT, INTACT, PT ON BIPAP 100% FIO2, NO SOB NOTED, KIM CATH IN PLACE DRAINING DARK LAVERN COLORED URINE, PT ON NG TUBE FEEDING, POSITIVE PLACEMENT CHECKED WITH SWOOSH TECHNIQUE, INITIAL ASSESSMENT DONE, ALL SAFETY PRECAUTION MET, CALL LIGHT WITHIN REACH, WILL CONTINUE TO MONITOR.
[2018-06-21] MEDS: QUEtiapine FUMARATE 25 MG TAB PO SCH (21:36)
[2018-06-21] MEDS: DONEPEZIL 10 MG TAB PO SCH (21:37)
--- NOTE | 2018-06-21 21:39 | NUR ---
DUE MEDICATION ADMINISTERED, PT TOLERATED WELL, PT PLATELET 108, DR. LAYTON STATED OK TO GIVE HEPARIN, PT RESTING, NO DISTRESS NOTED, CALL LIGHT WITHIN REACH, WILL CONTINUE TO MONITOR.
[2018-06-22] VITALS (8 sets, daily range): BP systolic 106–163; BP diastolic 50–79
--- NOTE | 2018-06-22 | NUR ---
PT SLEEPING, NO DISTRESS NOTED, V/S TAKEN, WNL, CALL LIGHT WITHIN REACH, WILL CONTINUE TO MONITOR.
[2018-06-22] MEDS: PIPER/TAZO 2.25GM/D5W PREMIX 50 ML IV SCH ×2 (00:41→05:13)
[2018-06-22] MEDS: Z-GUARD PASTE TP SCH ×2 (00:41→13:11)
--- NOTE | 2018-06-22 04:10 | NUR ---
CHECKED ON PT, PT SLEEPING, NO DISTRESS NOTED, V/S TAKEN, WITHIN PT BASELINE, CALL LIGHT WITHIN REACH, WILL CONTINUE TO MONITOR.
[2018-06-22] MEDS: DEXT 5% / NACL 0.45% 1,000 ML IV SCH (05:01)
[2018-06-22] MEDS: BLOOD GLUCOSE MONITORING 1 DEV DEV FS SCH ×2 (05:12→12:22)
--- NOTE | 2018-06-22 05:13 | NUR ---
DUE MEDICATION ADMINISTERED, PT TOLERATED WELL, NO DISTRESS NOTED, CALL LIGHT WITHIN REACH, WILL CONTINUE TO MONITOR.
[2018-06-22 06:26] LABS: BASOPHILS % (AUTO) 0.4 % (0.0-2.0); EOSINOPHILS # (AUTO) 0.2 K/uL (0-0.4); EOSINOPHILS % (AUTO) 3.7 % (0.0-4.0); HEMATOCRIT 37.9 % (36-52); HEMOGLOBIN 12.4 g/dL (12.0-18.0); LYMPHOCYTES # (AUTO) 0.7 K/uL (2.0-11.5); LYMPHOCYTES % (AUTO) 12.4 % (20.5-51.1); MEAN CORPUSCULAR HEMOGLOBIN 32 pg (27-31); MEAN CORPUSCULAR HGB CONC 33 g/dL (33-37); MEAN CORPUSCULAR VOLUME 97.1 fL (80-94); MONOCYTES # (AUTO) 0.4 K/uL (0.8-1.0); NEUTROPHILS % (AUTO) 75.5 % (42.2-75.2); PLATELET COUNT (AUTO) 85 K/uL (140-450); RED BLOOD CELL COUNT(AUTO) 3.91 MIL/uL (4.20-6.10); RED CELL DISTRIBUTION WIDTH 14.5 % (11.6-13.7); WHITE BLOOD COUNT (AUTO) 5.3 K/uL (4.8-10.8)
[2018-06-22] MEDS: ALBUTEROL SULFATE/IPRATROPIU 3 ML SOL IH SCH (06:41)
--- NOTE | 2018-06-22 06:41 | NUR ---
RECEIVED PT ON DOMINGUEZ V60 ON ST 12/6 RR 14 FIO2 100 PT IN HF IRRITABLE WEARING F\F MASK SIZE LG GEL UNDER MASK , PT HAS EXISTING REDNESS BRIDGE OF NOSE BS DIMINISHED HHN GIVEN I\L WITH 3 MG DUONEB ALARMS ARE ON AND AUDIBLE CONT. POX IN PLACE BIPAP PLUGGED INTO RED OUTLET
[2018-06-22 06:48] LABS: CARBON DIOXIDE 30.2 mmol/L (21-32); CHLORIDE 111 mmol/L (98-107); CREATININE 1.3 mg/dL (0.7-1.3); GLUCOSE 118 mg/dL (74-106); POTASSIUM 4.2 mmol/L (3.5-5.1); SODIUM SERUM 146 mmol/L (136-145); UREA NITROGEN, BLOOD 31 mg/dL (7-18)
[2018-06-22 06:52] LABS: MAGNESIUM 1.8 mg/dL (1.8-2.4); PHOSPHORUS 1.7 mg/dL (2.5-4.9)
--- NOTE | 2018-06-22 07:18 | NUR ---
ENDORSED PT TO DAY SHIFT NURSE RICHARD RN, FOR CONTINUOUS OF CARE. PT STABLE, NO DISTRESS NOTED, CALL LIGHT WITHIN REACH.
--- NOTE | 2018-06-22 07:20 | NUR ---
Received report from pm nurse Jeny. Pt asleep in bed, bipap mask on, no signs of distress. Call light within reach. Will cont to monitor.
[2018-06-22] MEDS ORDERED: SODIUM PHOS / POTASSIUM PHOS 1 PKT PDR PO SCH (08:55)
[2018-06-22] MEDS: DOCUSATE SODIUM 100 MG GELCAP PO SCH (09:00)
[2018-06-22] MEDS ORDERED: FERROUS SULFATE 300 MG/5 ML UDC GT SCH (09:00)
[2018-06-22] MEDS ORDERED: ASCORBIC ACID 500 MG TAB GT SCH (09:00)
[2018-06-22] MEDS ORDERED: CHLORHEXADINE GLUC 2% CLOTH TP SCH (09:00)
[2018-06-22] MEDS ORDERED: MUPIROCIN CA NASAL 2% 1GM TUBE NS SCH (09:00)
[2018-06-22] MEDS: levETIRAcetam 500 MG TAB PO SCH (09:32)
[2018-06-22] MEDS: busPIRone 5 MG TAB PO SCH (09:32)
[2018-06-22] MEDS: ASPIRIN 81 MG TAB.CHEW PO SCH (09:32)
[2018-06-22] MEDS: AMIODARONE 200 MG TAB PO SCH (09:33)
[2018-06-22] MEDS ORDERED: VALPROIC ACID 250 MG/5 ML UDC GT SCH (09:34)
[2018-06-22] MEDS ORDERED: VALPROIC ACID 250 MG/5 ML UDC NG SCH (09:36)
[2018-06-22] MEDS ORDERED: DOCUSATE 100 MG/10 ML UDC NG SCH (09:36)
[2018-06-22] MEDS ORDERED: levETIRAcetam 100 MG/ML ORASYR NG SCH (09:37)
[2018-06-22] MEDS ORDERED: MORPHINE SULFATE 2 MG/ML SYR IVP PRN (12:45)
--- NOTE | 2018-06-22 12:48 | NUR ---
REMOVED BIPAP PER ORDER 2 L N/C PLACED FAMILY PRESENT
--- NOTE | 2018-06-22 12:52 | NUR ---
Bipap removed by RT. Morphine administered for comfort. Pt with facial grimacing & restlessness, respirations even & nonlabored. Daughter & son present at bedside & interacting appropriately. Pt HOB maintained at 30-45deg elevation. Will continue to monitor.
[2018-06-22] MEDS ORDERED: SCOPOLAMINE 1.5 MG/72 HR PATCH TD PRN (12:55)
--- NOTE | 2018-06-22 13:00 | NUR ---
NGT feeding discontinued per physician order. NGT to R nares kept in place. Pt asleep at this time, FLACC 0, respirations even & nonlabored. Family left bedside & states will be back after lunch.
[2018-06-22] MEDS ORDERED: LORazepam 2 MG/ML VIAL IM/IVP PRN (13:05)
--- NOTE | 2018-06-22 14:00 | NUR ---
NGT discontinued from R nares. Tube intact. Pt awake, no signs of distress at this time, FLACC 0. Will cont to monitor.
[2018-06-22] MEDS: MORPHINE SULFATE 50 MG in NACL 0.9% 45 ML IV PRN (14:08)
--- NOTE | 2018-06-22 15:30 | NUR ---
Mod amt creamy white oral secretions present. Oral cavity suctioned. SaO2 @ 87% on room air at this time. Pt calm, FLACC 0. Respirations even & nonlabored. Cont morphine drip @ 2mg/hr.
--- NOTE | 2018-06-22 15:42 | NUR ---
1520 MET WITH PATIENTS SON ENDY AND DR HAMMONDS PRESENT. ENDY STATED THAT HE HAS BEEN PATIENTS DECISION MAKER FOR PAST SEVERAL YEARS AND DOES HAVE POA. REQUESTED THAT HE BRING IN OR SEND A COPY. SAID PATIENT HAD BEEN AT [facility] AND NOW AT [facility] AND STAFF CAN VERIFY THAT HE HAS BEEN THE INVOLVED FAMILY MEMBER. PER ENDY THERE ARE N[place] AND [place]OST [place]. HIS SISTER FROM [facility] VISITED TODAY AND HAS A DIFFERENCE OF OPINION ON POC FOR PT. PER DR HAMMONDS IT IS IN THE PATIENTS BEST INTEREST TO CONTINUE WITH COMFORT MEASURES AND DR MARTEL BUS WASHER AGREES AND ALSO ENDY IS IN AGREEMENT. 1517 RECEIVED EMAIL FROM ENDY WITH ATTACHED POA BUT IS FOR FINANCES. REPLIED AND REQUESTED IF HE HAS POA FOR MEDICAL DECISIONS TO FORWARD.
--- NOTE | 2018-06-22 19:10 | NUR ---
Report given to pm nurse Jeny. Pt asleep, respirations even & nonlabored, ongoing IV morphine drip @ 2mg/hr.
--- NOTE | 2018-06-22 19:10 | NUR ---
RECEIVED BEDSIDE REPORT FROM DAY SHIFT NURSE RICHARD RN, PT ASLEEP, NO DISTRESS NOTED, IV TO L FOOT 22G PATENT, INTACT, INFUSING MORPHINE DRIP @ 2ML/HR, INFUSING WELL, PT ON ROOM AIR, NO S/S OF SOB OR DISTRESS NOTED, KIM CATH IN PLACE, INITIAL ASSESSMENT DONE, ALL SAFETY PRECAUTION MET, CALL LIGHT WITHIN REACH, WILL CONTINUE TO MONITOR.
--- NOTE | 2018-06-22 20:00 | NUR ---
PT IS CALM, MITTENS TAKEN OFF, PT CALM AND COOPERATIVE, NO DISTRESS NOTED, WILL NOTIFY DRRoland TO D/C RESTRAINTS ORDER.
--- NOTE | 2018-06-22 22:10 | NUR ---
CHECKED ON PT, PT RESTING, NO DISTRESS NOTED, CALL LIGHT WITHIN REACH, WILL CONTINUE TO MONITOR.
--- NOTE | 2018-06-22 23:55 | NUR ---
CHECKED ON PT, PT SLEEPING, NO DISTRESS NOTED, CALL LIGHT WITHIN REACH, WILL CONTINUE TO MONITOR. Addendum: 06/23/18 at 0237 by Jeny Heda RN V/S TAKEN, 83/46 HR 69, NOTIFIED DR. LAYTON. STATED UNDERSTANDING.
[2018-06-23] VITALS: BP 83/46
[2018-06-23] MEDS: Z-GUARD PASTE TP SCH ×2 (01:17→13:08)
--- NOTE | 2018-06-23 02:37 | NUR ---
CHECKED ON PT, PT SLEEPING COMFORTABLE, NO DISTRESS NOTED, CALL LIGHT WITHIN REACH, WILL CONTINUE TO MONITOR.
[2018-06-23 04:00] VITALS: BP 76/46
--- NOTE | 2018-06-23 07:26 | NUR ---
ENDORSED PT TO DAY SHIFT NURSE GUY GARY FOR CONTINUOUS OF CARE. Addendum: 06/23/18 at 0759 by Jeny Head RN REPORT GIVEN TO ABDIRAHMAN ZHANG
--- NOTE | 2018-06-23 07:27 | NUR ---
Received report from pm nurse Jeny. Pt resting in bed, eyes open spontaneously, respirations even & nonlabored, FLACC 0. R foot IV intact & asymptomatic with ongoing morphine drip @ 2mg/hr. Call light within reach.
[2018-06-23 08:00] VITALS: BP 83/43
[2018-06-23 08:41] LABS: FOLIC ACID 8.9 ng/mL (>3.0)
--- NOTE | 2018-06-23 09:00 | NUR ---
Pt asleep, opens eyes to name. Sponge bath provided. Pt repositioned. Chago tx well, respirations even & nonlabored in room air, FLACC 0. R foot IV intact with ongoing morphine drip @ 2mg/hr. Indwelling felix cath in place & draining min amt brown urine. HOB kept elevated @ 30deg. Will continue to monitor.
--- NOTE | 2018-06-23 11:30 | NUR ---
Pt repositioned for comfort. No signs of distress. Pt opens eyes spontaneously. FLACC 0. Cont morphine drip @ 2mg/hr to R foot IV.
[2018-06-23 12:00] VITALS: BP 107/56
--- NOTE | 2018-06-23 14:24 | NUR ---
ENTRY FOR 06/22/181999 RECEIVED COPY OF POA FOR MEDICAL DECISIONS VIA EMAIL FROM [facility]. POA REVIEWED FOR VALIDITY. FORWARDED TO EQUIPMENT SALES SPECIALIST ADELE AND REQUESTED THAT HE PRINT AND PLACE ON PATIENTS CHART.
[2018-06-23] MEDS: MORPHINE SULFATE 50 MG in NACL 0.9% 45 ML IV PRN ×2 (15:23→21:31)
[2018-06-23 16:00] VITALS: BP 108/57
--- NOTE | 2018-06-23 19:15 | NUR ---
REPORT GIVEN TO PM NURSE LUCILA.
[2018-06-23 20:00] VITALS: BP 82/42
--- NOTE | 2018-06-23 20:00 | NUR ---
PT TEMPERATURE 101.7, NOTIFIED DR. LAYTON REGARDING PT TEMPERATURE, AND PT IS RESTLESS, DR. MOREAU PT, STATED HE IS GOING TO ORDER TYLENOL RECTAL AND TO INCREASE MORPHINE PER PROTOCOL. WILL CONTINUE WITH ORDERS.
[2018-06-23] MEDS ORDERED: ACETAMINOPHEN 120 MG SUPP RC ONE (21:05)
--- NOTE | 2018-06-23 21:31 | NUR ---
TYLENOL ADMINISTERED, MORPHINE DRIP INCREASED TO 4MG /HR, PT TOLERATED WELL, WILL CONTINUE TO MONITOR.
--- NOTE | 2018-06-23 23:55 | NUR ---
PT COMFORTABLY SLEEPING, V/S TAKEN, CALL LIGHT WITHIN REACH, WILL CONTINUE TO MONITOR. Addendum: 06/24/18 at 0435 by Jeny Head RN TEMPERATURE IS 99.9, COOLING MEASURE CONTINUED.
[2018-06-24] VITALS: BP 82/36
[2018-06-24] MEDS: Z-GUARD PASTE TP SCH ×2 (01:09→12:11)
--- NOTE | 2018-06-24 02:16 | NUR ---
CHECKED ON PT, PT SLEEPING,NO DISTRESS NOTED, CALL LIGHT WITHIN REACH, WILL CONTINUE TO MONITOR.
[2018-06-24 04:00] VITALS: BP 60/39
--- NOTE | 2018-06-24 04:01 | NUR ---
CHECKED ON PT, V/S TAKEN, TEMP 100.2, COOLING MEASURE CONTINUED, PT SLEEPING, NO DISTRESS NOTED, CALL LIGHT WITHIN REACH, WILL CONTINUE TO MONITOR.
--- NOTE | 2018-06-24 07:30 | NUR ---
ENDORSED PT TO DAY SHIFT NURSE ANAMARIA GARY, FOR CONTINUOUS OF CARE.
--- NOTE | 2018-06-24 07:32 | NUR ---
RECEIVED REPORT FROM BO RN. PT RESTING IN BED. NONVERBAL. FLACC-0. IV SITE PATENT AND INTACT. KIM CATHETER PATENT. PT ON MORPHINE DRIP. CALL LIGHT WITHIN REACH. SAFETY MEASURES ENSURED. WILL CONTINUE TO MONITOR.
[2018-06-24 09:51] VITALS: BP 72/43
[2018-06-24] MEDS: MORPHINE SULFATE 50 MG in NACL 0.9% 45 ML IV PRN (11:28)
[2018-06-24 12:00] VITALS: BP 76/36
--- NOTE | 2018-06-24 12:09 | NUR ---
PT RESTING IN BED AND REPOSITIONED. FLACC-0. CALL LIGHT WITHIN REACH. SAFETY MEASURES ENSURED. WILL CONTINUE TO MONITOR.
[2018-06-24 15:29] VITALS: BP 59/28
--- NOTE | 2018-06-24 15:32 | NUR ---
PT RESTING IN BED. FLACC-0. CALL LIGHT WITHIN REACH. SAFETY MEASURES ENSURED. WILL CONTINUE TO MONITOR.
--- NOTE | 2018-06-24 15:48 | NUR ---
[facility] SERVICES NO LONGER NEEDED, PLEASE CONTACT RD IF THERE ARE ANY CHANGES IN STATUS. JAMES LUCIO RD
--- NOTE | 2018-06-24 19:36 | NUR ---
RECEIVED ENDORSEMENT FROM ANAMARIA GARY DAYSHIFT NURSE AT BEDSIDE FOR CONTINUITY OF CARE, PT IN STABLE CONDITION.
--- NOTE | 2018-06-24 19:36 | NUR ---
ENDORSED PLAN OF CARE TO NIGHT RN.
[2018-06-24 20:00] VITALS: BP 71/31
--- NOTE | 2018-06-24 20:00 | NUR ---
PT IN LOW BED WITH ALL FALLS PRECAUTIONS.IV SITE ON R FOOT 22G INTACT AND RUNNING MORPHINE GTT AT 4MLS/HR.PT RESPONDS TO LIGHT TO DEEP PRESSURE, HE WILL OPEN EYES SPONTANEOUSLY, EYES HAVE PIN POINT PUPILS. V/S FOLLOWS T 98.5 P 77 R 12 B/P 57/33 02 78%. PT BREATHING IS DEEP WITH NORMAL EFFORT, HOWEVER PT BREATHING IS SLOWER AND MORE HESITANT THAN NORMAL. FAMILY DOESN'T NOT WANT SUPPLEMENTAL O2 AT THIS TIME. MD ALSO AWARE. WILL CONTINUE WITH COMFORT MEASURES OF CARE. NO S/S OF PAIN OR DISTRESS NOTED.
--- NOTE | 2018-06-24 20:30 | NUR ---
DR. MCKINNEY AT BEDSIDE, EVALUATING OPT. MOST RECENT B/P IS 90/43. MORPHINE GTT ON GOING PT ALSO HAS INTACT KIM CATHETER. DRAINING DARK LAVERN URINE.
[2018-06-25] VITALS: BP 57/33
[2018-06-25] MEDS: MORPHINE SULFATE 50 MG in NACL 0.9% 45 ML IV PRN (00:14)
--- NOTE | 2018-06-25 00:15 | NUR ---
PT IN LOW BED WITH ALL FALLS PRECAUTIONS IN PLACE. V/S FOLLOWS T 98.5 P 77 R 8 B/P 68/40 02 78 P 72. PT BREATHING IS EVEN BUT SLOWER AND DEEPER THAN NORMAL. SOME RHONCHI HEARD WITH EXPIRATION.
[2018-06-25] MEDS: Z-GUARD PASTE TP SCH (01:00)
--- NOTE | 2018-06-25 01:30 | NUR ---
MORPHINE DRIP REPLACED ORDERED. 10MLS OF MORPHINE WASTED AND WITNESSED BY ANOTHER RN (SANAM GARY).
[2018-06-25 04:00] VITALS: BP 74/34
--- NOTE | 2018-06-25 04:00 | NUR ---
PT IN BED NO S/S OF PAIN OR DISTRESS. PT TURNED, CHANGED AND REPOSITIONED. V/S FOLLOWS T 97.1 P 79 R 8 B/P 74/34 02 79 ON ROOM AIR. IV DRIP INTACT AND MORPHINE GTT GOING AT 4MLS/HR. BED LOW AND ALL FALLS PRECAUTIONS IN PLACE.
--- NOTE | 2018-06-25 07:20 | NUR ---
REPORT GIVEN TO DAISY VARGAS AM DAYSHIFT NURSE AT BEDSIDE FOR CONTINUITY OF CARE, PT IN STABLE CONDITION.
--- NOTE | 2018-06-25 08:00 | NUR ---
RECEIVED PT FROM ABDIRAHMAN MCGEE. MORPHINE DRIP RUNNING AT 4MG/HR. NOTIFIED BY PATCH MACHINE OPERATOR THAT PT'S HEART RATE IS AT 30. PT ASSESSED. COMFORT MEASURES PROVIDED. Addendum: 06/25/18 at 1647 by Mariano Knutson RN PT IS DNR.
--- NOTE | 2018-06-25 08:15 | NUR ---
CALLED PATIENT'S DAUGHTER COREY GRAY NOTIFIED THAT HER DAD WAS AT 8AM SHE STATED SHE CAN'T COME BUT SHE WILL CALL HER BROTHER AND WILL CALL BACK
--- NOTE | 2018-06-25 08:25 | NUR ---
CALLED [facility] OFFICE NOTIFIED PATIENT'S AT 8 AM SHE WILL CALL BACK
--- NOTE | 2018-06-25 11:40 | NUR ---
SPOKE ON THE PHONE WITH RODY ALFRED FROM [facility]. CASE NUMBER RECEIVED: [id number].
--- NOTE | 2018-06-25 13:36 | NUR ---
PT PICKED UP BY [facility].
== END 2018-06-25 13:36 | disposition expired | DRG 871 ==
LOC: MED 19:59 → MMU 22:23 → MIC 22:57 → MMU 06-20 08:05 → MTU 06-20 22:00
PROVIDERS: ADMIT General Practice; ATTEND General Practice
PROC: 5A09457 Assistance with Respiratory Ventilation, 24-96 Consecutive Hours, Continuous Positive Airway Pressure (ICD-10-PCS; principal; 2018-06-19)
DX: A41.9 Sepsis, unspecified organism (principal); N17.0 Acute kidney failure with tubular necrosis; G93.41 Metabolic encephalopathy; J96.01 Acute respiratory failure with hypoxia; J69.0 Pneumonitis due to inhalation of food and vomit; J15.6 Pneumonia due to other Gram-negative bacteria; N39.0 Urinary tract infection, site not specified; E87.0 Hyperosmolality and hypernatremia; R65.20 Severe sepsis without septic shock; E78.5 Hyperlipidemia, unspecified; I10 Essential (primary) hypertension; F02.80 Dementia in other diseases classified elsewhere, unspecified severity, without behavioral disturbance, psychotic disturbance, mood disturbance, and anxiety; G20 Parkinson's disease; G40.909 Epilepsy, unspecified, not intractable, without status epilepticus; R13.10 Dysphagia, unspecified; F41.9 Anxiety disorder, unspecified; F32.9 Major depressive disorder, single episode, unspecified; G93.9 Disorder of brain, unspecified; E83.39 Other disorders of phosphorus metabolism; E83.41 Hypermagnesemia; Z66 Do not resuscitate; I46.9 Cardiac arrest, cause unspecified; D69.6 Thrombocytopenia, unspecified; D64.9 Anemia, unspecified; Z95.0 Presence of cardiac pacemaker
CPT/HCPCS: 36415; 36600; 51702; 70450; 71045; 74018; 80048; 80053; 81001; 82140; 82150; 82607; 82728; 82746; 82803; 82948; 83036; 83540; 83605; 83690; 83735; 83880; 84100; 84443; 84484; 85025; 85045; 85610; 85730; 87040; 87070; 87081; 87086; 87186; 87205; 87804; 92610; 93005; 93970; 94640; 94660; 96365; 96367; 99285; J0696; J1644; J1956; J2060; J2270; J2543; J7030; J7060; J7620; Q0092